=== PATIENT | female | born 1945 | race Caucasian/White ===

== ENCOUNTER 2016-06-27 00:26 | Emergency (ER) | payer OTHER, MEDICARE ==
[~2016-06-27] VITALS: Ht 154.9 cm; Wt 49.4 kg
[~2016-06-27 00:26] MED LIST: ABILIFY10 MG; ABILIFY20 MG PO; ACETAMINOPHEN325 M1 PO; ALLERCLEAR10 MG PO; AMLODIPINE BESY10 MG PO; ANTACID LIQUID355 ML PO; ANTIVERT25 MG PO; ATIVAN1 MG PO; ATORVASTATIN CA40 MG PO; BACTROBAN15 GM TOP; CELEXA 20 MG TA20 MG PO; CEPACOL SORE T1 EAC7 PO; CHILDREN'S ASPI81 MG PO; CITALOPRAM HBR40 MG PO; CLARITIN10 M2 PO; CLARITIN10 MG PO; COUMADIN 4 MG TA4 M1 PO; DIFLUCAN100 MG; DILTIAZEM 24HR240 M1; DOVONEX120 GM; DULCOLAX5 MG PO; DUONEB 2.5-0.5 M3 ML INH; EFFEXOR XR37.5 MG PO; ESTRACE1 TUBE; FLOVENT HFA 1110 MCG INH; FUROSEMIDE 40 M40 M1 PO; HYDROCODON-ACE1 EAC7; HYDROXYCHLOROQ200 M1 PO; HYDROXYZINE HCL25 M1 PO; IRON325 PO; JOCK ITCH15 GM; KAPVAY0.1 MG PO; KEFLEX500 MG PO; KLOR-CON M2020 MEQ PO; LAMICTAL 25 MG25 M1 PO; LAMICTAL100 MG PO; LASIX 40 MG TAB40 M2; LEVOCETIRIZINE D5 MG; LISINOPRIL20 MG PO; LISINOPRIL5 MG PO; MECLIZINE 25 MG25 M1 PO; METHOTREXATE 22.5 M1; MILK OF MA400 MG/5 M; MINIPRIN81 MG; MIRALAX17 GM PO; MIRALAX255 GM PO; MOM PO; MYLANTA GAS MA125 MG PO; NEURONTIN 300300 M1 PO; NORVASC5 MG PO; NYSTATIN 1100000 U/M PO; OLANZAPINE5 MG PO; OXYBUTYNIN 5 MG5 M1 PO; OYSTER SHELL C1 EA12 PO; PANTOPRAZOLE SO40 M1 PO; POTASSIUM20 PO; PREDNISONE 10 M10 MG; PREVACID 15 MG15 M4 DISSOLVE; QUESTRAN PACKET4 GM PO; RANITIDINE 150150 MG PO; REMERON 30 MG T30 M1 PO; SEROQUEL 50 MG50 M1 PO; SIMVASTATIN40 MG PO; SINGULAIR 10 MG10 MG PO; THERMAZENE50 GM TP; TOPROL XL50 MG PO; TRAZODONE HCL100 MG PO; TRIAMCINOLONE A80 G2 TOP; TRIAMCINOLONE A80 GM; VALIUM2 MG PO; VITAMIN D3; VITAMIN D3 COM1 EACH PO; ZOCOR 10 MG TAB10 MG PO; ZOFRAN ODT4 MG PO; ZYPREXA 5 MG TAB5 M1
[2016-06-27 02:29] LABS: HEMATOCRIT 39.1 % (37.0-47.0); HEMOGLOBIN 12.2 gm/dL (12.0-15.0); MANUAL DIFF YES; MCH 26.9 pg (26.0-34.0); MCHC 31.2 % (28.0-37.0); MCV 86.2 fL (80.0-100.0); PLATELET COUNT 132 thou/uL (150-400); RBC 4.54 mil/uL (4.20-5.00); RDW 15.5 % (10.5-14.5); WBC 11.3 thou/uL (4.0-11.0)
[2016-06-27 02:32] LABS: ANION GAP 10 mmol/L (7-16); BUN 26 mg/dL (7-18); CALCIUM 8.3 mg/dL (8.5-10.1); CHLORIDE 103 mmol/L (98-107); CO2 26 mmol/L (21-32); CREATININE 1.4 mg/dL (0.6-1.3); GLUCOSE 198 mg/dL (70-99); POTASSIUM 4.3 mmol/L (3.5-5.1); SODIUM 139 mmol/L (136-145)
[2016-06-27 02:37] LABS: ALBUMIN 3.1 g/dL (3.4-5.0); ALKALINE PHOSPHATASE 83 U/L (46-116); SGOT < 5 U/L (15-37); SGPT 16 U/L (30-65); TOTAL BILIRUBIN 0.3 mg/dL (<0.1-1.0); TOTAL PROTEIN 5.9 g/dL (6.4-8.2)
[2016-06-27] MEDS ORDERED: ONDANSETRON HCL4 M2 PO (02:37)
[2016-06-27 04:37] LABS: ABSOLUTE NEUTROPHILS 10.2 thou/uL (1.4-8.2); ANISOCYTOSIS SLIGHT; TOTAL CELL COUNT 100
[2016-07-29] MEDS ORDERED: CALCIUM 500 +1 EAC5 PO (08:38)
[2016-07-29] MEDS ORDERED: SENOKOT-S1 TA1 PO (08:39)
[2016-07-29] MEDS ORDERED: CLOTRIMAZOLE-BE15 GM TOP (08:39)
[2016-07-29] MEDS ORDERED: OTHER MISCELL (08:43)
== END 2016-06-27 03:41 | disposition home or self-care (01) ==
LOC: ER 00:26
PROVIDERS: Emergency Medicine
DX: R11.2 Nausea with vomiting, unspecified (principal); R19.7 Diarrhea, unspecified